=== PATIENT | female | born 1985 | race Hispanic/Latino ===

== ENCOUNTER 2021-12-17 13:58 | Outpatient (CLI) | payer OTHER ==
[2021-12-18 00:49] LABS: SARS-CoV-2 PCR by NAA Not Detected (NotDetected)
== END 2021-12-17 13:59 | disposition home or self-care (01) ==
LOC: CSHLAB 13:58
PROVIDERS: ATTEND Student in an Organized Health Care Education/Training Program
DX: Z20.822 Contact with and (suspected) exposure to COVID-19 (principal)
CPT/HCPCS: U0003; U0005

== ENCOUNTER 2021-12-19 18:00 | Inpatient (IN) | payer MEDICAID, OTHER, SELFPAY ==
[~2021-12-19 18:00] MED LIST: Bupivacaine/Epinephrine 0.25% 30 ML VIAL ONE; Lidocaine 2% MPF 10 ML AMP (For Epidural Use) ONE
[2021-12-19] MEDS ORDERED: hydrALAZINE 20 MG/ML VIAL SLOW IVP PRN (19:52)
[2021-12-19] MEDS ORDERED: Lidocaine 1% (PF) 30 ML VIAL SC PRN (19:52)
[2021-12-19] MEDS ORDERED: Methylergonovine 0.2 MG/ML VIAL IM PRN (19:52)
[2021-12-19] MEDS ORDERED: Carboprost 250 MCG/ML AMP IM PRN (19:52)
[2021-12-19] MEDS ORDERED: Diphenoxylate HCl/Atropine Tablet PO PRN (19:52)
[2021-12-19] MEDS ORDERED: Promethazine HCl 25 MG/ML VIAL IM PRN (19:52)
[2021-12-19] MEDS ORDERED: Ibuprofen 800 MG TAB PO PRN (19:52)
[2021-12-19] MEDS ORDERED: Acetaminophen 500 MG TAB PO PRN (19:52)
[2021-12-19] MEDS ORDERED: Ondansetron PF 4 MG/2 ML Vial IVP PRN (19:52)
[2021-12-19] MEDS ORDERED: Misoprostol 200 MCG TAB PR PRN (19:52)
[2021-12-19] MEDS ORDERED: NS w/ Oxytocin 30 units 500 ML IV SCH ×2 (20:00)
[2021-12-20 00:35] LABS: Hemoglobin 11.5 g/dL (12.0-15.5); Mean Corpuscular HGB CONC 33.4 g/dL (32.0-36.0); Mean Corpuscular Hemoglobin 27.4 pg (27.0-33.0); Mean Corpuscular Volume 81.9 fl (81.6-98.3); Mean Platelet Volume 10.2 fl (7.4-10.4); Platelet Count 338 10x3/uL (150-450); RBC Distribution Width 14.9 % (11.5-14.5); White Blood Cell (WBC) Count 9.8 10x3/uL (3.5-10.5)
[2021-12-20 00:37] VITALS: BMI 26.9
[2021-12-20] MEDS ORDERED: Penicillin G Potassium 5 MILL.UNITS in Sodium Chloride 0.9% 100 ML IVPB SCH (01:00)
[2021-12-20 01:13] LABS: Syphilis Antibody Nonreactive (Nonreactive); Syphilis Antibody Index 0.06 S/CO (<1.00 Non-Reactive)
[2021-12-20 01:14] LABS: Hep B Surf Ag Non-Reactive S/CO (NonReactive)
[2021-12-20] MEDS: Misoprostol 100 MCG TAB VAG SCH (01:16)
[2021-12-20 01:18] LABS: HBSAg Index 0.14 S/CO (0-0.99)
[2021-12-20] MEDS: Penicillin G 2.5 MILL.units 2.5 MILL.UNITS in Premix Bag 1 BAG IVPB SCH ×3 (05:48→14:20)
[2021-12-20] MEDS ORDERED: Butorphanol Tartrate 1 MG/ML VIAL SLOW IVP SCH (06:30)
[2021-12-20] MEDS: Lactated Ringer's 1,000 ML IV SCH ×2 (10:00→11:30)
[2021-12-20] MEDS ORDERED: Fentanyl 2 mcg/Bup 0.1% Cadd 100 ML ONE (10:17)
[2021-12-20] MEDS ORDERED: Lactated Ringer's 500 ML IV PRN (10:59)
[2021-12-20] MEDS ORDERED: diphenhydrAMINE 50 MG/ML VIAL IVP PRN ×2 (10:59→19:37)
[2021-12-20] MEDS ORDERED: Naloxone HCl 0.4 mg/ml Vial IVP PRN ×2 (10:59)
[2021-12-20] MEDS ORDERED: Moisturizing Cream (Eucerin) 113 GM JAR TOP PRN (10:59)
[2021-12-20] MEDS ORDERED: Acetaminophen 325 MG TAB PO PRN ×2 (10:59→20:27)
[2021-12-20] MEDS ORDERED: Ondansetron PF 4 MG/2 ML Vial IVP PRN ×3 (10:59→20:27)
[2021-12-20] MEDS ORDERED: ePHEDrine Sulfate 50 MG/10 ML VIAL SLOW IVP PRN (10:59)
[2021-12-20] MEDS ORDERED: Promethazine HCl 25 MG/ML VIAL IM PRN ×3 (10:59→20:27)
[2021-12-20] MEDS ORDERED: Fentanyl 2 mcg/Bupivacaine 0.1% Cassette 100 ML EPIDURAL SCH (11:00)
[2021-12-20] MEDS ORDERED: Communication Order-Pharmacy FS SCH (11:00)
[2021-12-20] MEDS ORDERED: Fentanyl 100 MCG/2 ML VIAL ONE ×4 (13:06→19:35)
[2021-12-20] MEDS ORDERED: Benzonatate 100 MG CAP PO PRN (16:49)
[2021-12-20] MEDS ORDERED: Bicitra 30 ML UDCUP PO PRN (18:12)
[2021-12-20] MEDS ORDERED: Famotidine/PF 20 mg/2ml Vial SLOW IVP PRN (18:12)
[2021-12-20] MEDS ORDERED: ceFAZolin 2 GM/Dextrose 50 ML 2 GM in Premix Bag 1 BAG IVPB SCH (18:15)
[2021-12-20] MEDS ORDERED: Azithromycin 500 MG in Sodium Chloride 0.9% 250 ML 250 ML IVPB SCH (18:15)
[2021-12-20] MEDS ORDERED: Famotidine/PF 20 mg/2ml Vial ONE (18:16)
[2021-12-20] MEDS ORDERED: ceFAZolin 2 GM/Dextrose 50 ML IVPB ONE (18:17)
[2021-12-20] MEDS ORDERED: Azithromycin 500 MG VIAL ONE (18:18)
[2021-12-20] MEDS ORDERED: Phenylephrine 40 MG/NS 250 ML 250 ML ONE (18:47)
[2021-12-20] MEDS ORDERED: PROPOFOL 20 ML ONE (18:48)
[2021-12-20] MEDS ORDERED: Lidocaine 1% PF 5 ML VIAL ONE (19:06)
[2021-12-20] MEDS ORDERED: Dexamethasone 4 mg/ml Vial ONE (19:07)
[2021-12-20] MEDS ORDERED: Ondansetron PF 4 MG/2 ML Vial ONE (19:07)
[2021-12-20] MEDS ORDERED: Ketorolac Tromethamine 30 MG/ML VIAL ONE (19:12)
[2021-12-20 19:36] LABS: Hemoglobin 9.3 g/dL (12.0-15.5); Mean Corpuscular HGB CONC 32.9 g/dL (32.0-36.0); Mean Corpuscular Hemoglobin 27.4 pg (27.0-33.0); Mean Corpuscular Volume 83.2 fl (81.6-98.3); Mean Platelet Volume 9.8 fl (7.4-10.4); Platelet Count 290 10x3/uL (150-450); RBC Distribution Width 15.1 % (11.5-14.5)
[2021-12-20] MEDS ORDERED: diphenhydrAMINE 50 MG/ML VIAL IM PRN (19:37)
[2021-12-20] MEDS ORDERED: Naloxone HCl 0.4 mg/ml Vial IV PRN (19:37)
[2021-12-20] MEDS ORDERED: Zolpidem Tartrate 5 MG TAB PO PRN (19:37)
[2021-12-20] MEDS ORDERED: diphenhydrAMINE 25 MG CAP PO PRN ×2 (19:37→20:27)
[2021-12-20] MEDS ORDERED: Communication Order-Pharmacy FS PRN (19:45)
[2021-12-20] MEDS ORDERED: fentaNYL Citrate/PF 1,000 MCG, Admixture Fee 1 EACH in Sodium Chloride 0.9% 30 ML IV PRN (19:57)
[2021-12-20] MEDS ORDERED: Boostrix 0.5 ML (Tdap) VIAL IM ONE (20:27)
[2021-12-20] MEDS ORDERED: NS w/ Oxytocin 30 units 500 ML IV SCH (20:27)
[2021-12-20] MEDS ORDERED: HYDROcodone/Acetaminophen 5/325 mg Tablet PO PRN (20:27)
[2021-12-20] MEDS ORDERED: Methylergonovine 0.2 MG/ML VIAL IM PRN (20:27)
[2021-12-20] MEDS ORDERED: Lanolin Ointment 7 GM TUBE TOP PRN (20:27)
[2021-12-20] MEDS ORDERED: Simethicone Chewable 80 MG TAB PO PRN (20:27)
[2021-12-20] MEDS ORDERED: Bisacodyl 10 MG SUPP PR PRN (20:27)
[2021-12-20] MEDS ORDERED: hydrALAZINE 20 MG/ML VIAL SLOW IVP PRN (20:27)
[2021-12-21 04:59] LABS: Hemoglobin 8.9 g/dL (12.0-15.5); Mean Corpuscular Hemoglobin 27.6 pg (27.0-33.0); Mean Corpuscular Volume 81.4 fl (81.6-98.3); Platelet Count 300 10x3/uL (150-450); RBC Distribution Width 14.6 % (11.5-14.5); Red Blood Cell (RBC) Count 3.22 10x6/uL (3.90-5.03); White Blood Cell (WBC) Count 16.6 10x3/uL (3.5-10.5)
[2021-12-21] MEDS: Ibuprofen 800 MG TAB PO SCH ×3 (07:54→21:57)
[2021-12-21] MEDS: Docusate 100 MG CAP PO SCH ×3 (07:54→21:57)
[2021-12-21] MEDS: Ferrous Sulfate 325 MG TAB PO SCH ×3 (07:54→21:57)
[2021-12-21] MEDS: Lactated Ringer's 1,000 ML IV SCH (07:55)
[2021-12-21] MEDS: Misoprostol 100 MCG TAB VAG SCH (07:55)
[2021-12-21] MEDS: Penicillin G 2.5 MILL.units 2.5 MILL.UNITS in Premix Bag 1 BAG IVPB SCH (07:56)
[2021-12-21] MEDS: Prenatal Vitamin 1 TAB PO SCH (08:31)
[2021-12-21] MEDS: HYDROcodone/Acetaminophen 5/325 mg Tablet PO PRN (20:05)
[2021-12-22] MEDS: HYDROcodone/Acetaminophen 5/325 mg Tablet PO PRN ×2 (04:13→16:59)
[2021-12-22] MEDS ORDERED: Fluconazole 100 MG TAB PO SCH (06:00)
[2021-12-22] MEDS: metroNIDAZOLE 500 MG TAB PO SCH ×2 (06:24→16:55)
[2021-12-22] MEDS: Ibuprofen 800 MG TAB PO SCH ×3 (06:24→20:56)
[2021-12-22] MEDS: Ferrous Sulfate 325 MG TAB PO SCH ×2 (08:08→20:56)
[2021-12-22] MEDS: Docusate 100 MG CAP PO SCH ×2 (08:08→20:56)
[2021-12-22] MEDS: Prenatal Vitamin 1 TAB PO SCH (08:09)
[2021-12-23] MEDS: HYDROcodone/Acetaminophen 5/325 mg Tablet PO PRN ×3 (04:20→13:06)
[2021-12-23] MEDS: Ibuprofen 800 MG TAB PO SCH ×2 (06:00→13:04)
[2021-12-23] MEDS: metroNIDAZOLE 500 MG TAB PO SCH (06:00)
[2021-12-23] MEDS: Docusate 100 MG CAP PO SCH (08:51)
[2021-12-23] MEDS: Ferrous Sulfate 325 MG TAB PO SCH (08:51)
[2021-12-23] MEDS: Prenatal Vitamin 1 TAB PO SCH (08:51)
[2021-12-23 09:35] VITALS: TEMP 98.1
[2021-12-23 13:31] VITALS: BP 121/66
== END 2021-12-23 15:40 | disposition home or self-care (01) | DRG 786 ==
LOC: CSHLD 18:02 → CSHPP 12-20 22:35
PROVIDERS: ADMIT Student in an Organized Health Care Education/Training Program; ATTEND Student in an Organized Health Care Education/Training Program
PROC: 3E0P7VZ Introduction of Hormone into Female Reproductive, Via Natural or Artificial Opening (ICD-10-PCS; 2021-12-19)
PROC: 10D00Z1 Extraction of Products of Conception, Low, Open Approach (ICD-10-PCS; principal; 2021-12-20)
PROC: 3E033VJ Introduction of Other Hormone into Peripheral Vein, Percutaneous Approach (ICD-10-PCS; 2021-12-20)
PROC: 10H07YZ Insertion of Other Device into Products of Conception, Via Natural or Artificial Opening (ICD-10-PCS; 2021-12-20)
DX: O36.5930 Maternal care for other known or suspected poor fetal growth, third trimester, not applicable or unspecified (principal); O45.93 Premature separation of placenta, unspecified, third trimester; O72.1 Other immediate postpartum hemorrhage; O23.593 Infection of other part of genital tract in pregnancy, third trimester; O98.82 Other maternal infectious and parasitic diseases complicating childbirth; Z3A.39 39 weeks gestation of pregnancy; Z37.0 Single live birth; O99.824 Streptococcus B carrier state complicating childbirth; D64.9 Anemia, unspecified; O99.02 Anemia complicating childbirth; N76.0 Acute vaginitis; B37.3 Candidiasis of vulva and vagina; O42.02 Full-term premature rupture of membranes, onset of labor within 24 hours of rupture; O76 Abnormality in fetal heart rate and rhythm complicating labor and delivery
CPT/HCPCS: 36415; 51702; 85027; 86780; 86850; 86900; 86901; 87340; 88307; J0595; J1100; J1885; J2405; J2540; J2590; J2704; J3010; J3490; J7120